=== PATIENT | female | born 1960 | race Caucasian/White ===

== ENCOUNTER → 2020-08-06 | Day surgery (SDC) | payer OTHER ==
[~2020-08-06] MED LIST: BIOTIN800 MCG PO; CRESTOR10 MG PO; LANSOPRAZOLE15 M1 PO; LEVOTHYROXINE112 MC1 PO; VITAMIN C PO; VITAMIN D PO; VITAMIN E400 UNI2 PO; ZETIA10 MG PO; ZYRTEC PO
== END | disposition home or self-care (01) ==
LOC: OR 06:32
DX: K63.5 Polyp of colon (principal); K29.70 Gastritis, unspecified, without bleeding; K21.9 Gastro-esophageal reflux disease without esophagitis; E78.5 Hyperlipidemia, unspecified; I10 Essential (primary) hypertension; J44.9 Chronic obstructive pulmonary disease, unspecified; E03.9 Hypothyroidism, unspecified; Z87.891 Personal history of nicotine dependence; Z20.822 Contact with and (suspected) exposure to COVID-19; Z88.8 Allergy status to other drugs, medicaments and biological substances
CPT/HCPCS: J2704; J3010; J7030

== ENCOUNTER → 2020-10-26 | Outpatient (CLI) | payer OTHER | LOC: KOH-I 11:56 | DX: M54.9 Dorsalgia, unspecified (principal); M50.322 Other cervical disc degeneration at C5-C6 level; M43.12 Spondylolisthesis, cervical region | CPT/HCPCS: 72040; 72070 ==

== ENCOUNTER → 2021-04-14 | Outpatient (CLI) | payer OTHER | LOC: MRI 04-11 13:00 | DX: M43.17 Spondylolisthesis, lumbosacral region (principal); M48.061 Spinal stenosis, lumbar region without neurogenic claudication; M51.26 Other intervertebral disc displacement, lumbar region; M47.816 Spondylosis without myelopathy or radiculopathy, lumbar region | CPT/HCPCS: 72148 ==

== ENCOUNTER → 2022-01-26 | Outpatient (CLI) | payer OTHER | LOC: KOH-I 13:35 | DX: M25.552 Pain in left hip (principal); M25.551 Pain in right hip; M54.9 Dorsalgia, unspecified; M47.817 Spondylosis without myelopathy or radiculopathy, lumbosacral region | CPT/HCPCS: 72100; 73522 ==